=== PATIENT | female | born 1975 | race Caucasian/White ===

== ENCOUNTER 2020-07-21 08:00 | Outpatient (RCR) | payer OTHER, SELFPAY ==
--- NOTE | 2020-06-15 15:22 | PTOPEVAL ---
INITIAL PHYSICAL THERAPY EVALUATION and PLAN OF CARE Thank you for referring Kamille Bloom to [facility].? Kamille is scheduled to be seen for physical therapy? 1x/week for 6 weeks. Please review, sign, date and return this plan of care OCTAVIO. I agree with and certify that the following plan of care is medically necessary. Referring Physician Date Admitting Provider: Attending Provider: Niki Jimenez, TOOL PROCUREMENT COORDINATOR Referring Provider: Margot Jimenez *PT Outpatient Evaluation Start: 06/15/20 10:43 Freq: Status: Active Protocol: Document 06/15/20 10:40 CAMRON (Rec: 06/15/20 12:03 CAMRON [id number]) Therapy Assessment Status Assessment Status Assessment Status Evaluation Outpatient Past Medical History Past Medical History Source of Past Medical History Patient Neurological History Hx Neurological Disorders No Significant History Cardiovascular History Hx Hypertension Yes Respiratory History Hx Other Respiratory Disorders Yes: recently stopped smoking x 5 months Gastrointestinal History Hx Gastrointestinal Disorders No Significant History Genitourinary History Hx Other Genitourinary Disorders Yes: urinary incontinence Musculoskeletal History Hx Musculoskeletal Disorders No Significant History Endocrine History Hx Diabetes Yes Reproductive History 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 Hx Tubal Ligation Yes: November 2001 Psychosocial History Hx Anxiety Yes Hx Depression Yes Other History Hx Other Medical Conditions Yes: Hepatitis C Evaluation Information Problem Diagnosis Female stress incontinence Onset April 2020 Subjective Information Last WRAPPER SELECTOR visit - with exam MD Query Text:As Reported By Patient/ noticed bladder leakage - Family wanted Kamille to get treatment for it When she has UTIs will have burning sensation - feels likes she has to urinate all of the time Prior Level of Function Activity Level (Last 3 Months) Occupation greenskeeper laborer - stands 8 hrs/day Hand Dominance Right Medications Home Meds (Include: OTC, RX, Vitamins, fluconazole, glipizide, Herbals, Dose, Route,and Frequency) januvia, ketoconazole, Query Text:Home Med Entries Will No metformin, montelukast, Longer Recall From Past Visits. Home rosuvastatin Meds Must Be Re-entered With Each Visit. Comments Additional Prior Level of Function recreation - read, take a Comments drive, watch TV Pain Assessment Timing of Pain Assessment Timing of Pain Assessment Pre-Treatment Self Report
--- NOTE | 2020-08-10 11:31 | PCPTNOTE ---
PHYSICAL THERAPY DISCHARGE SUMMARY Admitting Provider: Attending Provider: Niki Jimenez, MANUAL WRITER Patient:Kamille Vinson Date of :1975 Kamille has not returned for any further treatments since 07/21/2020, therefore she will be discharged at this time. Patient?s initial visit was on 06/15/2020 10:30 and she had a total of 6 visits. Kamille had to cancel her re-evaluation appointment due to illness and did not call to reschedule this appointment. The goals have been partially met. Thank you for referring Kamille to [facility]. Please review, sign, date and return this discharge summary OCTAVIO. I have been updated about Kamille's current status and I agree with discharge from the above service at this time. Referring Physician Date
== END 2020-08-10 14:59 | disposition home or self-care (01) ==
LOC: ANHPT 08:00
PROVIDERS: Visit Provider Nurse Practitioner Family
DX: N39.3 Stress incontinence (female) (male) (principal)
CPT/HCPCS: 97110; 97140; 97161